=== PATIENT | female | born 1940 | race Caucasian/White ===

== ENCOUNTER → 2017-06-01 | Outpatient (CLI) | payer MEDICARE, BC ==
[~2017-06-01] MED LIST: ASPIR-LOW81 MG PO; ASPIRIN 81M81 MG/TA2 PO; ASPIRIN E.C. 8181 MG PO; CALCIUM CITRAT200 MG PO; CEPHALEXIN500 M1 PO; CO Q-1010 MG PO; DOMPERIDONE10 MG/CAP PO; LEVAQUIN 750MG750 MG PO; LUTEIN PO; MAGNESIUM250 M1 PO; MULTIPLE VITAMI1 TAB PO; MVI PO; OCUVITE1 TA1 PO; POTASSIUM99 MG PO; PROBIOTIC FORMU1 CAP PO; ZANTAC 7575 MG PO; [UNRECOGNIZED DRUG - OTHER] PO; mucinex
== END ==
LOC: MC.RAD 13:20
DX: Z12.31 Encounter for screening mammogram for malignant neoplasm of breast (principal); Z98.890 Other specified postprocedural states

== ENCOUNTER → 2018-06-29 | Outpatient (CLI) | payer MEDICARE, BC | LOC: MC.RAD 10:40 | DX: Z12.31 Encounter for screening mammogram for malignant neoplasm of breast (principal) ==

== ENCOUNTER 2021-08-07 09:15 | Outpatient (RCR) | payer MEDICARE, BC | END 2021-08-07 09:45 | disposition home or self-care (01) | LOC: WSPT 09:15 | DX: M25.562 Pain in left knee (principal) ==

== ENCOUNTER 2022-01-13 04:24 | Emergency (ER) | payer MEDICARE, BC ==
[~2022-01-13] VITALS: Ht 165.1 cm; Wt 75.0 kg
[2022-01-13 04:46] LABS: BASO # 0.1 K/mm3 (0.0-0.2); BASO % 1.5 % (0.0-2.0); EOS # 0.2 K/mm3 (0.0-0.7); EOS % 2.3 % (0.0-4.0); GRAN # 5.1 K/mm3 (1.4-6.5); GRAN % 67.8 % (42.2-75.2); HEMATOCRIT 46.2 % (37.0-47.0); HEMOGLOBIN 15.2 g/dl (12.5-16.0); LYMPH # 1.8 K/mm3 (1.2-3.4); LYMPH % 23.3 % (20.0-51.0); MEAN CELL VOLUME 93 fl (80.0-100.0); MEAN CORPUSCULAR HEMOGLOBIN 31 pg (27-31); MEAN CORPUSCULAR HGB CONC 33 g/dl (33.0-37.0); MEAN PLATELET VOLUME 9.8 fl (7.4-10.4); MONO # 0.4 K/mm3 (0.1-0.6); MONO % 4.8 % (1.7-9.3); PLATELET COUNT 266 K/mm3 (130-400); RED BLOOD COUNT 4.97 M/mm3 (4.10-5.30); REDCELL DISTRIBUTION WIDTH-CV 12.9 % (11.5-14.5)
[2022-01-13 04:58] LABS: INR 0.9 (0.8-3.0)
[2022-01-13 05:01] LABS: PARTIAL THROMBOPLASTIN TIME 25.8 SECONDS (26.0-37.0)
[2022-01-13 05:14] LABS: ALANINE AMINOTRANSFERASE 26 U/L (0-55); ALBUMIN 4.2 gm/dL (3.4-4.8); ALKALINE PHOSPHATASE 68 U/L (40-150); ANION GAP 10 mmol/L (7-16); AST,SGOT 19 U/L (5-34); BILIRUBIN,TOTAL 0.4 mg/dL (0.2-1.2); BLOOD UREA NITROGEN 17 mg/dL (10-20); CALCIUM 9.4 mg/dL (8.4-10.2); CARBON DIOXIDE 26 mmol/L (23-31); CHLORIDE 105 mmol/L (98-107); CREATININE, serum 0.91 mg/dL (0.57-1.11); GLUCOSE 164 mg/dL (70-99); POTASSIUM 4.1 mmol/L (3.5-4.5); SODIUM 141 mmol/L (136-145); TOTAL PROTEIN 7.4 gm/dL (6.2-8.1)
[2022-01-13 05:26] LABS: TROPONIN-I < 0.010 ng/mL (0.00-0.033)
[2022-01-13 05:36] LABS: C-REACTIVE PROTEIN 0.16 mg/dL (0.00-0.50)
[2022-01-13 05:43] LABS: COLLECTION METHOD CLEAN CATCH
[2022-01-13 05:49] LABS: PH 6 (5-8); SQUAMOUS EPITHELIAL None Seen /hpf (0-10); URINE APPEARANCE Clear (CLEAR/HAZY); URINE BACTERIA None Seen /hpf (NONE SEEN); URINE BILIRUBIN Negative (NEGATIVE); URINE BLOOD Negative (NEGATIVE); URINE COLOR Straw (YELLOW); URINE GLUCOSE Negative (NEGATIVE); URINE KETONE Negative (NEGATIVE); URINE LEUKOCYTE ESTERASE Negative (NEGATIVE); URINE NITRATE Negative (NEGATIVE); URINE PROTEIN(semi-quant) Negative (NEGATIVE); URINE RBC 0-2 /hpf (0-2); URINE UROBILINOGEN Negative (NEGATIVE)
[2022-01-13 05:58] LABS: THYROID STIMULATING HORMONE 1.202 uIU/mL (0.350-4.940)
[2022-01-13 06:20] VITALS: BP 148/92; PULSE 86
[2022-01-13] MEDS ORDERED: PRAVACHOL 40MG40 MG PO (06:46)
[2022-01-13] MEDS ORDERED: FOSAMAX 70MG TA70 MG PO (06:47)
[2022-01-13] MEDS ORDERED: SYNTHROID 0.0.025 MG PO (06:48)
== END 2022-01-13 06:31 | disposition home or self-care (01) ==
LOC: COL.ER 04:24
PROVIDERS: Family Medicine
DX: I10 Essential (primary) hypertension (principal)

== ENCOUNTER 2022-07-07 09:00 | Outpatient (RCR) | payer MEDICARE, BC ==
[~2022-07-07 09:00] MED LIST changes: +FOSAMAX 70MG TA70 MG PO; +PRAVACHOL 40MG40 MG PO; +SYNTHROID 0.0.025 MG PO
== END 2022-07-09 | disposition home or self-care (01) ==
LOC: WSOT
DX: G56.01 Carpal tunnel syndrome, right upper limb (principal)